=== PATIENT | female | born 1990 | race Two or more races ===

== ENCOUNTER 2019-08-23 09:16 | Emergency (ER) | payer SELFPAY ==
[~2019-08-23] VITALS: Ht 157.5 cm; Wt 108.9 kg
--- NOTE | 2019-08-23 09:42 | PHYS DOC ---
Past Medical History Attending Signature I have participated in the care of this patient and I have reviewed and agree with all pertinent clinical information above including history, exam, and recommendations. (ASHLEY CABRERA MD) Adult General Chief Complaint Chief Complaint: ABDOMINAL PAIN HPI HPI Patient is a 29 year old female that presents with intermittent epigastric pain ongoing for 2 days accompanied by back pain and nausea. She states is intermittent in nature however she did say that she had some spicy and hot ramen noodles and that causes it start hurting. She currently rates her pain 0 out of 10 in severity. (DAMARIS ADAMS APRN) Review of Systems Review of Systems Constitutional: Denies fever or chills [] Eyes: Denies change in visual acuity, redness, or eye pain [] HENT: Denies nasal congestion or sore throat [] Respiratory: Denies cough or shortness of breath [] Cardiovascular: No additional information not addressed in HPI [] GI: Denies abdominal pain at this time, states she has been having some upper abdominal pain and nausea over the last 2 days; she states she vomited x 1 on Thursday. Denies bloody stools or diarrhea [] : Denies dysuria or hematuria [] Musculoskeletal: Denies back pain or joint pain [] Integument: Denies rash or skin lesions [] Neurologic: Denies headache, focal weakness or sensory changes [] Endocrine: Denies polyuria or polydipsia [] Complete systems were reviewed and found to be within normal limits, except as documented in this note. (DAMARIS ADAMS APRN) Physical Exam Physical Exam Constitutional: Well developed, well nourished, no acute distress, non-toxic appearance. [] HENT: Normocephalic, atraumatic, bilateral external ears normal, oropharynx moist, no oral exudates, nose normal. [] Eyes: PERRLA, EOMI, conjunctiva normal, no discharge. [] Neck: Normal range of motion, no tenderness, supple, no stridor. [] Cardiovascular:Heart rate regular rhythm, no murmur [] Lungs & Thorax: Bilateral breath sounds clear to auscultation [] Abdomen: Bowel sounds normal, soft, no tenderness, no masses, no pulsatile masses. [] Skin: Warm, dry, no erythema, no rash. [] Back: No tenderness, no CVA tenderness. [] Extremities: No tenderness, no cyanosis, no clubbing, ROM intact, no edema. [] Neurologic: Alert and oriented X 3, normal motor function, normal sensory function, no focal deficits noted. [] Psychologic: Affect normal, judgement normal, mood normal. [] (DAMARIS ADAMS APRN) Current Patient Data Vital Signs Vital Signs Date Time Temp Pulse Resp B/P (MAP) Pulse Ox O2 Delivery O2 Flow Rate FiO2 08/23/19 11:00 60 16 119/77 (91) 99 Room Air 08/23/19 09:39 97.9 97.9 (ASHLEY CABRERA MD) Lab Values Laboratory Tests Test 08/23/19 09:27 08/23/19 09:30 08/23/19 10:12 Urine Collection Type Unknown Urine Color Red Urine Clarity Cloudy Urine pH 5.5 Urine Specific Amelia 1.020 Urine Protein 30 mg/dL (NEG-TRACE) Urine Glucose (UA) Negative mg/dL (NEG) Urine Ketones (Stick) Trace mg/dL (NEG) Urine Blood Large (NEG) Urine Nitrite Positive (NEG) Urine Bilirubin Small (NEG) Urine Urobilinogen Dipstick 1.0 mg/dL (0.2 mg/dL) Urine Leukocyte Esterase Moderate (NEG) Urine RBC Tntc /HPF (0-2) Urine WBC Fobs /HPF (0-4) Urine Squamous Epithelial Cells Few /LPF Urine Bacteria Moderate /HPF (0-FEW) POC Urine HCG, Qualitative Hcg negative (Negative) White Blood Count 6.4 x10^3/uL (4.0-11.0) Red Blood Count 4.59 x10^6/uL (3.50-5.40) Hemoglobin 13.6 g/dL (12.0-15.5) Hematocrit 40.9 % (36.0-47.0) Mean Corpuscular Volume 89 fL (79-100) Mean Corpuscular Hemoglobin 30 pg (25-35) Mean Corpuscular Hemoglobin Concent 33 g/dL (31-37) Red Cell Distribution Width 14.1 % (11.5-14.5) Platelet Count 317 x10^3/uL (140-400) Neutrophils (%) (Auto) 61 % (31-73) Lymphocytes (%) (Auto) 24 % (24-48) Monocytes (%) (Auto) 9 % (0-9) Eosinophils (%) (Auto) 5 % (0-3) H Basophils (%) (Auto) 1 % (0-3) Neutrophils # (Auto) 3.9 x10^3/uL (1.8-7.7) Lymphocytes # (Auto) 1.5 x10^3/uL (1.0-4.8) Monocytes # (Auto) 0.6 x10^3/uL (0.0-1.1) Eosinophils # (Auto) 0.3 x10^3/uL (0.0-0.7) Basophils # (Auto) 0.0 x10^3/uL (0.0-0.2) Sodium Level 144 mmol/L (136-145) Potassium Level 3.8 mmol/L (3.5-5.1) Chloride Level 107 mmol/L (98-107) Carbon Dioxide Level 29 mmol/L (21-32) Anion Gap 8 (6-14) Blood Urea Nitrogen 12 mg/dL (7-20) Creatinine 0.9 mg/dL (0.6-1.0) Estimated GFR (Cockcroft-Gault) 74.0 BUN/Creatinine Ratio 13 (6-20) Glucose Level 94 mg/dL (70-99) Calcium Level 8.6 mg/dL (8.5-10.1) Total Bilirubin 0.4 mg/dL (0.2-1.0) Aspartate Amino Transferase (AST) 19 U/L (15-37) Alanine Aminotransferase (ALT) 20 U/L (14-59) Alkaline Phosphatase 71 U/L (46-116) Total Protein 7.5 g/dL (6.4-8.2) Albumin 3.6 g/dL (3.4-5.0) Albumin/Globulin Ratio 0.9 (1.0-1.7) L Lipase 61 U/L (73-393) L Laboratory Tests 08/23/19 10:12 Laboratory Tests 08/23/19 10:12 Microbiology 08/23/19 Urine Culture - Preliminary, Resulted 08/23/19 Urine Culture Result 1 (NA) - Preliminary, Resulted (ASHLEY CABRERA MD) EKG EKG [] (DAMARIS ADAMS APRN) Radiology/Procedures Radiology/Procedures [][facility] [address] [place] [address] IMAGING REPORT Signed PATIENT: ZOIE DONALDSON ACCOUNT: [id number] : 1990 LOCATION: ER AGE: 29 SEX: F EXAM STATUS: REG ER ORD. PHYSICIAN: DAMARIS ADAMS APRN REASON: intermittent RUQ abd pain after eating PROCEDURE: ABDOMEN LTD ABDOMEN LTD INDICATION: Right upper quadrant pain after eating COMPARISON: None. TECHNIQUE: Limited transverse and longitudinal grayscale images of the right upper quadrant with color and pulsed doppler utilized as appropriate. FINDINGS: The liver demonstrates normal echogenicity without focal lesions. The liver measures 14 cm. The portal vein is patent with normal antegrade flow. The gallbladder is normal in appearance without stones. No wall thickening or pericholecystic fluid. Negative sonographic Cruz's sign. No intrahepatic or extrahepatic biliary dilatation. The common bile duct measures 0.2 cm. Pancreas is poorly visualized due to overlying bowel gas. The right kidney has normal echogenicity and measures 10.4 cm. No hydronephrosis, shadowing stones or suspicious masses seen. No ascites or fluid collections. The aorta and IVC are normal diameter where visualized. IMPRESSION: No cholelithiasis. No evidence of acute cholecystitis. Normal caliber common bile duct. Electronically signed by: Doug Valencia MD (08/23/2019 10:30 AM) [id number] DICTATED and SIGNED BY: DOUG VALENCIA MD DATE: 08/23/19 1030 (DAMARIS ADAMS APRN) Course & Med Decision Making Course & Med Decision Making Pertinent Labs and Imaging studies reviewed. (See chart for details) Will get labs, ua, and ultrasound. UA: Shows positive nitrates, leukocytes, and moderate bacteria. Will treat with Macrobid as she is allergic to Keflex. Imaging is negative. Will place on Pepcid BID 20 mg as I suspect the pain is related to GERD. Labs are unremarkable. (DAMARIS ADAMS APRN) Dragon Disclaimer Dragon Disclaimer This electronic medical record was generated, in whole or in part, using a voice recognition dictation system. (DAMARIS ADAMS APRN) Departure Departure Impression: Primary Impression: Urinary tract infection Additional Impression: GERD (gastroesophageal reflux disease) Disposition: 01 HOME, SELF-CARE Condition: STABLE Referrals: NO PCP (PCP) Patient Instructions: Diet for Gastroesophageal Reflux Disease, Adult, Urinary Tract Infection Additional Instructions: Thank you for visiting [facility]. We appreciate you trusting us with your care. If any additional problems come up don't hesitate to return to visit us. Please follow up with your primary care provider so they can plan additional care if needed and know about the problem that you had. If symptoms worsen come back to the Emergency Department. Any concerning symptoms that start such as chest pain, shortness of air, weakness or numbness on one side of the body, running high fevers or any other concerning symptoms return to the ER. Please fill your medications at any pharmacy and follow the prescription instructions. You have been prescribed an antibiotic today to help fight your infection. Please take all of the antibiotic as directed. If after 48 hours the infection is not improving, please return for more care. If the infection worsens, return to ER for additional care. Scripts Famotidine (FAMOTIDINE) 20 Mg Tablet 20 MG PO BID for 30 Days, #60 TAB Prov: DAMARIS ADAMS APRN 08/23/19 Nitrofurantoin Monohyd/M-Cryst (MACROBID 100 MG CAPSULE) 100 Mg Capsule 1 CAP PO BID for 5 Days, #10 CAP 0 Refills Prov: DAMARIS ADAMS APRN 08/23/19 Problem Qualifiers Primary Impression: Urinary tract infection Urinary tract infection type: acute cystitis Hematuria presence: without hematuria Qualified Codes: N30.00 - Acute cystitis without hematuria Additional Impression: GERD (gastroesophageal reflux disease) Esophagitis presence: esophagitis presence not specified Qualified Codes: K21.9 - Gastro-esophageal reflux disease without esophagitis DAMARIS ADAMS APRN Aug 23, 2019 09:42 ASHLEY CABRERA MD Aug 26, 2019 06:07
[2019-08-23 09:43] LABS: BILIRUBIN,URINE SMALL (NEG); CLARITY,URINE CLOUDY; COLOR,URINE RED; NITRITE,URINE POSITIVE (NEG); PH,URINE 5.5; PROTEIN,URINE 30 mg/dL (NEG-TRACE)
[2019-08-23 10:04] LABS: BACTERIA,URINE MODERATE /HPF (0-FEW); RBC,URINE TNTC /HPF (0-2)
[2019-08-23 10:05] LABS: SQUAMOUS EPITHELIAL CELL,UR FEW /LPF
[2019-08-23 10:12] LABS: WBC,URINE FOBS /HPF (0-4)
[2019-08-23 10:27] LABS: BASO % 1 % (0-3); EOS # 0.3 x10^3/uL (0.0-0.7); EOS % 5 % (0-3); HEMATOCRIT 40.9 % (36.0-47.0); HEMOGLOBIN 13.6 g/dL (12.0-15.5); LYMPH # 1.5 x10^3/uL (1.0-4.8); LYMPH % 24 % (24-48); MEAN CORPUSCULAR HEMOGLOBIN 30 pg (25-35); MEAN CORPUSCULAR HGB CONC 33 g/dL (31-37); MEAN CORPUSCULAR VOLUME 89 fL (79-100); MONO # 0.6 x10^3/uL (0.0-1.1); MONO % 9 % (0-9); NEUT # 3.9 x10^3/uL (1.8-7.7); NEUT % 61 % (31-73); PLATELET COUNT 317 x10^3/uL (140-400); RED BLOOD COUNT 4.59 x10^6/uL (3.50-5.40); RED CELL DISTRIBUTION WIDTH 14.1 % (11.5-14.5); WHITE BLOOD COUNT 6.4 x10^3/uL (4.0-11.0)
[2019-08-23] MEDS ORDERED: NITR100C62 PO (10:28)
[2019-08-23] MEDS ORDERED: FAMO20TA5 PO (10:28)
[2019-08-23 10:33] LABS: CALCIUM 8.6 mg/dL (8.5-10.1); CREATININE 0.9 mg/dL (0.6-1.0); POTASSIUM 3.8 mmol/L (3.5-5.1)
--- NOTE | 2019-08-23 10:34 | RAD ---
ABDOMEN LTD INDICATION: Right upper quadrant pain after eating COMPARISON: None. TECHNIQUE: Limited transverse and longitudinal grayscale images of the right upper quadrant with color and pulsed doppler utilized as appropriate. FINDINGS: The liver demonstrates normal echogenicity without focal lesions. The liver measures 14 cm. The portal vein is patent with normal antegrade flow. The gallbladder is normal in appearance without stones. No wall thickening or pericholecystic fluid. Negative sonographic Cruz's sign. No intrahepatic or extrahepatic biliary dilatation. The common bile duct measures 0.2 cm. Pancreas is poorly visualized due to overlying bowel gas. The right kidney has normal echogenicity and measures 10.4 cm. No hydronephrosis, shadowing stones or suspicious masses seen. No ascites or fluid collections. The aorta and IVC are normal diameter where visualized. IMPRESSION: No cholelithiasis. No evidence of acute cholecystitis. Normal caliber common bile duct. Electronically signed by: Lauri Valencia MD (08/23/2019 10:30 AM) [id number]
[2019-08-23 10:39] LABS: ALBUMIN 3.6 g/dL (3.4-5.0); ALBUMIN/GLOBULIN RATIO 0.9 (1.0-1.7); TOTAL BILIRUBIN 0.4 mg/dL (0.2-1.0); TOTAL PROTEIN 7.5 g/dL (6.4-8.2)
[2019-08-23 11:00] VITALS: BP 119/77
== END 2019-08-23 11:37 | disposition home or self-care (01) ==
LOC: ER 09:16
DX: N30.00 Acute cystitis without hematuria (principal); K21.9 Gastro-esophageal reflux disease without esophagitis
CPT/HCPCS: 36415; 76705; 80053; 81001; 81025; 83690; 85025; 87086; 99285-25